=== PATIENT | female | born 1990 | race Caucasian/White ===

== ENCOUNTER 2020-08-03 16:54 | Outpatient (CLI) | payer OTHER ==
[2020-08-03] MEDS ORDERED: PRENATAL TABLE1 EAC1 PO (16:56)
== END 2020-08-04 16:16 | disposition home or self-care (01) ==
LOC: OBS/DEL 16:54
PROVIDERS: ATTEND Obstetrics & Gynecology
DX: O26.843 Uterine size-date discrepancy, third trimester (principal); O36.8130 Decreased fetal movements, third trimester, not applicable or unspecified; Z20.828 Contact with and (suspected) exposure to other viral communicable diseases

== ENCOUNTER 2020-08-25 07:19 | Inpatient (IN) | payer OTHER ==
[~2020-08-25] VITALS: Ht 157.5 cm; Wt 71.7 kg
[~2020-08-25 07:19] MED LIST: PRENATAL TABLE1 EAC1 PO
== END 2020-08-27 14:46 | disposition home or self-care (01) | DRG 807 ==
LOC: LDR 07:19 → OB/GYN 21:04
PROVIDERS: ADMIT Obstetrics & Gynecology; ATTEND Obstetrics & Gynecology
PROC: 10E0XZZ Delivery of Products of Conception, External Approach (ICD-10-PCS; principal; 2020-08-25)
PROC: 10907ZC Drainage of Amniotic Fluid, Therapeutic from Products of Conception, Via Natural or Artificial Opening (ICD-10-PCS; 2020-08-25)
PROC: 4A1HXFZ Monitoring of Products of Conception, Cardiac Rhythm, External Approach (ICD-10-PCS; 2020-08-25)
DX: O80 Encounter for full-term uncomplicated delivery (principal); Z37.0 Single live birth; Z3A.39 39 weeks gestation of pregnancy; Z20.828 Contact with and (suspected) exposure to other viral communicable diseases